=== PATIENT | male | born 1975 | race Two or more races ===

== ENCOUNTER 2016-06-07 17:28 | Emergency (ER) | payer OTHER ==
[~2016-06-07] VITALS: Ht 167.6 cm; Wt 88.5 kg
[2016-06-07 17:39] VITALS: BP 102/65
[2016-06-07 17:58] VITALS: BP 102/65
--- NOTE | 2016-06-09 02:05 | Emergency Room Report ---
History of Present Illness General Chief Complaint: Medical Clearance Source: Patient, EMS Present Illness HPI Patient was brought in by police department for medical clearance for booking After being chased the patient had apparently complained about palpitation Also reported that he had a history of anxiety At this time denies any chest pain or short of breath Denies any back or flank pain He reports taking Xanax at home Denies any fevers or chills Allergies: Coded Allergies: No Known Allergies (Unverified , 06/07/16) Patient History Past Medical History: see triage record Pertinent Family History: none Reviewed Nursing Documentation: PMH: Agreed, PSxH: Agreed Nursing Documentation-PMH Hx Hypertension: Yes Review of Systems All Other Systems: negative except mentioned in HPI Physical Exam Vital Signs Date Time Temp Pulse Resp B/P Pulse Ox O2 Delivery O2 Flow Rate FiO2 06/07/16 17:22 99.5 105 18 102/65 99 Sp02 EP Interpretation: reviewed, normal General Appearance: well appearing, no apparent distress Head: normocephalic, atraumatic Eyes: bilateral eye EOMI, bilateral eye PERRL ENT: hearing grossly normal, normal pharynx, TMs + canals normal, uvula midline Neck: full range of motion, supple, no meningismus, no bony tend Respiratory: lungs clear, normal breath sounds, no rhonchi, no respiratory distress, no retraction, no accessory muscle use Cardiovascular #1: normal peripheral pulses, regular rate, rhythm, no edema, no gallop, no JVD, no murmur Gastrointestinal: normal bowel sounds, non tender, soft, no mass, no organomegaly, non-distended, no guarding, no hernia, no pulsatile mass, no rebound Genitourinary: no CVA tenderness Musculoskeletal: normal inspection Neurologic: oriented x3, responsive, stave mill hand III-XII nml as tested, motor strength/ tone normal, sensory intact Psychiatric: mood/affect normal Skin: normal color, no rash, warm/dry, palpation normal Lymphatic: normal inspection, no adenopathy Medical Decision Making Diagnostic Impression: Primary Impression: medical clearance Additional Impression: palpitations ER Course Patient appears well Is hemodynamically stable I do not feel the patient required any further acute intervention In a stable for further booking And intermediate M.D. followup as needed Last Vital Signs Date Time Temp Pulse Resp B/P Pulse Ox O2 Delivery O2 Flow Rate FiO2 06/07/16 17:58 99.5 18 102/65 99 06/07/16 17:40 105 Disposition: D/C TO LAW ENF[facility]CEMENT IN [facility] Condition: Stable Referrals: NOT CHOSEN IPA/MD,REFERRING (PCP) Departure Forms: Custodial Clearance Patient Instructions: Palpitations, [id number] Additional Instructions: Patient is provided with the discharge instructions notified to follow up with primary doctor in the next 2-3 days otherwise Followup with Sidney Álvarez prior to that Please note that this report is being documented using [employer] technology. This can lead to erroneous entry secondary to incorrect interpretation by the dictating instrument. KARLA OBRIEN D.O. Jun 09, 2016 02:05
== END 2016-06-07 17:40 ==
LOC: EDBD 17:28 → EMR 17:35
DX: R00.2 Palpitations (principal); Z86.59 Personal history of other mental and behavioral disorders; I10 Essential (primary) hypertension
CPT/HCPCS: 99283